=== PATIENT | male | born 1970 | race Caucasian/White ===

== ENCOUNTER → 2017-06-02 | Outpatient (CLI) | payer BC ==
[~2017-06-02] VITALS: Ht 190.5 cm; Wt 108.9 kg
[~2017-06-02] MED LIST: CENTRUM SILVER1 EAC2 PO; FISH OIL 1,001000 M2 PO; PROTONIX40 M1 PO; VITAMIN D1000 UNI1 PO
--- NOTE | ~2017-06-02 | O ---
[facility] [place] [address] OPERATIVE REPORT Name: EDILBERTO CARRANZA III [id number] Admission: 06/02/17 Attend Phys: Cj Amaya MD, Discharge: Date of : 74 Report #: [id number] THIS REPORT FOR: //name// CC: DAMIR Amaya DATE OF SERVICE: 06/02/2017 PREOPERATIVE DIAGNOSES: 1. Gastroesophageal reflux disease. 2. Low back pain. POSTOPERATIVE DIAGNOSES: 1. Gastroesophageal reflux disease without esophagitis. 2. Hiatal hernia. 3. Low back pain. PROCEDURE PERFORMED: A thorough diagnostic esophagogastroduodenoscopy (EGD). SURGEON: Cj Amaya M.D. LATH HAND: None. ANESTHESIA: Monitored anesthesia care. ESTIMATED BLOOD LOSS: None. COMPLICATIONS: None. SPECIMENS: None. INDICATIONS: The patient is a 47-year-old male with a longstanding history of severe gastroesophageal reflux disease that has been recalcitrant to maximal medical therapy. The patient gets heartburn daily even while on maxed out doses of PPI therapy and as such, indication was for EGD today in addition to a thorough upper GI workup moving forward. DESCRIPTION OF PROCEDURE: After explaining the risks, benefits and alternatives of the procedure and obtaining consent, the patient was brought to the endoscopy room, supine on the hospital bed. After conducting a thorough timeout procedure verifying correct patient and procedure, the patient was given monitored anesthesia care. Once adequate anesthesia was attained, he was positioned gently in the left lateral decubitus position and the Fujinon upper endoscope was used to intubate the oropharynx with ease. This was advanced down a slightly tortuous esophagus, past the GE junction where the gastric lumen was identified and the pylorus was intubated. The scope was advanced to the [facility] [address] [place] [address] OPERATIVE REPORT Name: EDILBERTO CARRANZA [id number] Admission: 06/02/17 Attend Phys: Cj Amaya MD, Discharge: Date of : 74 Report #: [id number] portion of the duodenum where slow careful withdrawal of the EGD scope showed no evidence of duodenitis, gastritis, esophagitis, mass lesions or ulcerations. A retroflexion view of the scope within the gastric lumen showed a moderate sized hiatal hernia. The scope was straightened out in the gastric lumen where the stomach was desufflated and the scope was removed into the distal esophagus where the Z-line was identified and appeared to be slightly foreshortened at approximately 34 cm. There was no evidence of esophagitis, however, and no evidence of abnormal changes consistent with Holcomb's was identified. The entire stomach and distal esophagus was evacuated of all gas and the scope was removed and passed off the field completing the procedure. At the end of the procedure, all instrument, needle and sponge counts were correct. The patient tolerated the procedure without incident, was awakened in the endoscopy room and transitioned to the recovery room in stable condition with no apparent complications. He will proceed forward with an upper GI swallow for delineation of anatomy as well as esophageal manometry testing prior to any definitive operative intervention for his hiatal hernia and reflux disease. <ELECTRONICALLY SIGNED> By: Cj Amaya MD, FACS 06/02/17 [id number] Cj Amaya MD, FACS /nt
== END ==
LOC: GI 06:24
DX: K21.9 Gastro-esophageal reflux disease without esophagitis (principal); K44.9 Diaphragmatic hernia without obstruction or gangrene; M54.5 Low back pain; G47.30 Sleep apnea, unspecified; Z79.899 Other long term (current) drug therapy
CPT/HCPCS: 62110; 62900

== ENCOUNTER → 2017-06-11 | Outpatient (CLI) | payer BC | LOC: RAD 07:27 | DX: K44.9 Diaphragmatic hernia without obstruction or gangrene (principal); K21.9 Gastro-esophageal reflux disease without esophagitis ==